=== PATIENT | female | born 1970 | race Caucasian/White ===

== ENCOUNTER 2018-09-19 09:10 | Observation (INO) | payer SELFPAY ==
[~2018-09-19] VITALS: Ht 162.6 cm; Wt 76.9 kg
[2018-09-19] MEDS ORDERED: ASPIRIN 81 MG CHEW (CHILDREN'S ASA) PO ONE (09:30)
--- NOTE | 2018-09-19 09:38 | ED Chest Pain ---
General Chief Complaint: Chest Pain Stated Complaint: NOT FEELING WELL,CHEST PAIN Source: patient Exam Limitations: no limitations History of Present Illness Date Seen by Provider: Sep 19, 2018 Time Seen by Provider: 09:21 Initial Comments The patient presents to ER by private conveyance with chief complaint of chest pain starting around 5:00 yesterday. It is worse with exertion. In her right chest she has shortness of breath with only occasional cough. She still smokes about a pack cigarettes per day. She says the pain is worse with deep inspiration or direct palpation but not movement. She does not have a history of coronary artery disease or history of chest pain before. She had nausea with some vomiting overnight. She's had no sweats or radiation of the pain to her neck shoulder. She does not have a history of diabetes, hypertension, hyperlipidemia. Her plan was to drive home to [facility] however the pain became too great was about 8 out of 10 on arrival and a 5 out of 10 at rest presently. She has not taken anything for the pain. She denies a history of lung disease, surgery, immobilization or hospitalization, cancer. She did have a several hour drive from [place] few days ago. She has no swelling or pain in her bilateral calves. No history of early-onset coronary disease in the family or DVT/pulmonary embolisms. Last oral intake was last night at dinnertime. Allergies and Home Medications Allergies Coded Allergies: No Known Drug Allergies (Unverified , 09/19/18) Home Medications Trazodone HCl 150 Mg Tablet, 150 MG PO HS, (Reported) Patient Home Medication List Home Medication List Reviewed: Yes Review of Systems Review of Systems Constitutional: No chills, No diaphoresis EENTM: No Blurred Vision, No Double Vision Respiratory: Denies Cough; Shortness of Air Cardiovascular: See HPI, Chest Pain; Denies Edema, Denies Irregular Heart Rate Gastrointestinal: Denies Abdomen Distended, Denies Abdominal Pain, Denies Constipated, Denies Diarrhea; Nausea, Vomiting Musculoskeletal: No back pain, No joint pain Skin: No pruritus, No rash Psychiatric/Neurological: Denies Headache, Denies Numbness Past Vfpynoz-Qxvhjl-Leoeoh Hx Patient Social History Alcohol Use: Denies Use Recreational Drug Use: No Smoking Status: Never a Smoker Recent Foreign Travel: No Contact w/Someone Who Travel: No Physical Exam Vital Signs Vital Signs - First Documented 09/19/18 09:12 Temp 98.0 Pulse 125 Resp 16 B/P (MAP) 155/113 (127) Pulse Ox 95 O2 Delivery Room Air Capillary Refill : Height, Weight, BMI Height: '" Weight: lbs. oz. kg; BMI Method: General Appearance: WD/WN, Anxious HEENT: Pharynx Normal, Moist Mucous Membranes Neck: Full Range of Motion, Normal Inspection, Non Tender, Supple Respiratory: No Chest Non Tender; Lungs Clear, Normal Breath Sounds, No Accessory Muscle Use, No Respiratory Distress, Other (right upper chest wall re- creates the same chest pain to direct palpation.) Cardiovascular: Regular Rate, Rhythm, No Edema, Normal Peripheral Pulses Gastrointestinal: Normal Bowel Sounds, Non Tender, Soft Neurologic/Psychiatric: Alert, Oriented x3 Skin: Normal Color, Warm/Dry Focused Exam Lactate Level 09/19/18 09:50: Lactic Acid Level 2.68*H 09/19/18 11:55: Lactic Acid Level 0.83 Lactic Acid Level Laboratory Tests Test 09/19/18 09:50 09/19/18 11:55 Lactic Acid Level 2.68 MMOL/L (0.50-2.00) *H 0.83 MMOL/L (0.50-2.00) Progress/Results/Core Measures Results/Orders Lab Results Laboratory Tests Test 09/19/18 09:50 09/19/18 11:55 Range/Units White Blood Count 14.4 H 4.3-11.0 10^3/uL Red Blood Count 5.10 4.35-5.85 10^6/uL Hemoglobin 15.8 11.5-16.0 G/DL Hematocrit 46 35-52 % Mean Corpuscular Volume 90 80-99 FL Mean Corpuscular Hemoglobin 31 25-34 PG Mean Corpuscular Hemoglobin Concent 35 32-36 G/DL Red Cell Distribution Width 14.3 10.0-14.5 % Platelet Count 310 130-400 10^3/uL Mean Platelet Volume 10.2 7.4-10.4 FL Neutrophils (%) (Auto) 78 H 42-75 % Lymphocytes (%) (Auto) 16 12-44 % Monocytes (%) (Auto) 5 0-12 % Eosinophils (%) (Auto) 0 0-10 % Basophils (%) (Auto) 0 0-10 % Neutrophils # (Auto) 11.2 H 1.8-7.8 X 10^3 Lymphocytes # (Auto) 2.3 1.0-4.0 X 10^3 Monocytes # (Auto) 0.8 0.0-1.0 X 10^3 Eosinophils # (Auto) 0.0 0.0-0.3 10^3/uL Basophils # (Auto) 0.1 0.0-0.1 10^3/uL Neutrophils % (Manual) 76 % Lymphocytes % (Manual) 23 % Monocytes % (Manual) 1 % Eosinophils % (Manual) 0 % Basophils % (Manual) 0 % Band Neutrophils 0 % Blood Morphology Comment NORMAL Prothrombin Time 13.7 12.2-14.7 SEC INR Comment 1.0 0.8-1.4 Activated Partial Thromboplast Time 26 24-35 SEC D-Dimer 0.63 H 0.00-0.49 UG/ML Sodium Level 136 135-145 MMOL/L Potassium Level 3.8 3.6-5.0 MMOL/L Chloride Level 101 98-107 MMOL/L Carbon Dioxide Level 20 L 21-32 MMOL/L Anion Gap 15 H 5-14 MMOL/L Blood Urea Nitrogen 15 7-18 MG/DL Creatinine 0.78 0.60-1.30 MG/DL Estimat Glomerular Filtration Rate > 60 BUN/Creatinine Ratio 19 Glucose Level 80 70-105 MG/DL Lactic Acid Level 2.68 *H 0.83 0.50-2.00 MMOL/L Calcium Level 9.2 8.5-10.1 MG/DL Corrected Calcium 9.0 8.5-10.1 MG/DL Magnesium Level 1.3 L 1.8-2.4 MG/DL Total Bilirubin 0.8 0.1-1.0 MG/DL Aspartate Amino Transf (AST/SGOT) 22 5-34 U/L Alanine Aminotransferase (ALT/SGPT) 17 0-55 U/L Alkaline Phosphatase 93 40-136 U/L Myoglobin 47.4 10.0-92.0 NG/ML Troponin I 0.039 H <0.028 NG/ML Total Protein 7.2 6.4-8.2 GM/DL Albumin 4.2 3.2-4.5 GM/DL My Orders Orders - JEFF BEACH Ekg Tracing (09/19/18 09:15) Continuous Ekg Monitoring (09/19/18 09:19) Cbc With Automated Diff (09/19/18 09:29) Magnesium (09/19/18 09:29) Chest 1 View, Ap/Pa Only (09/19/18:29) Cardiac Profile 1 (09/19/18 09:29) Comprehensive Metabolic Panel (09/19/18:29) Myoglobin Serum (09/19/18 09:29) Protime With Inr (09/19/18:29) Partial Thromboplastin Time (09/19/18:29) O2 (09/19/18:29) Lipid Panel (09/20/18 06:00) Ed Iv/Invasive Line Start (09/19/18:29) Fibrin Degradation Products (09/19/18:) Nitroglycerin 0.4 Mg Btl 25's (Nitrostat (09/19/18 09:30) Aspirin Chewable Tablet (Baby Aspirin Ch (09/19/18 09:30) Blood Culture (09/19/18 09:40) Lactic Acid Analyzer (09/19/18 09:40) Manual Differential (09/19/18 09:50) Morphine Injection (Morphine Injection (09/19/18 11:04) Ed Iv/Invasive Line Start (09/19/18 11:04) Ns Iv 500 Ml (Sodium Chloride 0.9%) (09/19/18 11:04) Ns Iv 1000 Ml (Sodium Chloride 0.9%) (09/19/18 11:04) Ct Angio Chest W (09/19/18 11:04) Iohexol Injection (Omnipaque 350 Mg/Ml 1 (09/19/18 11:15) Received Contrast (Hold Metformin- Contr (09/19/18 11:15) Sodium Chloride Flush (Catheter Flush Sy (09/19/18 11:15) Ns (Ivpb) (Sodium Chloride 0.9% Ivpb Bag (09/19/18 11:15) Ondansetron Injection (Zofran Injectio (09/19/18 11:15) Ceftriaxone For Iv Use (Rocephin For I (09/19/18 12:15) Azithromycin Tablet (Zithromax Tablet) (09/19/18 12:15) Magnesium Oxide Tablet (Mag Ox Tablet) (09/19/18 12:30) Ketorolac Injection (Toradol Injection) (09/19/18 12:30) General/Regular (09/19/18 Lunch) Medications Given in ED Current Medications Medications Dose Ordered Sig/Bethany Route Start Time Stop Time Status Last Admin Dose Admin Aspirin 324 mg ONCE ONCE PO 09/19/18 09:30 09/19/18 09:32 DC 09/19/18 09:50 324 MG Azithromycin 500 mg ONCE ONCE PO 09/19/18 12:15 09/19/18 12:16 DC 09/19/18 12:35 500 MG Ceftriaxone Sodium 1000 mg/ Sterile Water 10 ml @ 200 mls/hr ONCE ONCE IV 09/19/18 12:15 09/19/18 12:17 DC 09/19/18 12:34 200 MLS/HR Iohexol 100 ml ONCE ONCE IV 09/19/18 11:15 09/19/18 11:16 DC 09/19/18 11:29 100 ML Ketorolac Tromethamine 30 mg ONCE ONCE IVP 09/19/18 12:30 09/19/18 12:31 DC 09/19/18 12:34 30 MG Magnesium Oxide 400 mg ONCE ONCE PO 09/19/18 12:30 09/19/18 12:31 DC 09/19/18 12:35 400 MG Nitroglycerin 0.4 mg UD PRN SL 09/19/18 09:30 09/19/18 14:05 DC 09/19/18 10:13 0.4 MG Ondansetron HCl 8 mg ONCE ONCE IVP 09/19/18 11:15 09/19/18 11:16 DC 09/19/18 11:20 8 MG Sodium Chloride 10 ml NEEDED PRN IV 09/19/18 11:15 09/19/18 17:12 DC 09/19/18 11:29 10 ML Sodium Chloride 100 ml ONCE ONCE IV 09/19/18 11:15 09/19/18 11:16 DC 09/19/18 11:29 80 ML Vital Signs/I&O 09/19/18 09:12 Temp 98.0 Pulse 125 Resp 16 B/P (MAP) 155/113 (127) Pulse Ox 95 O2 Delivery Room Air Progress Progress Note #1: Time: 09:36 Progress Note Pleurisy, pneumonia, coronary artery disease, pulmonary embolism, costochondritis, etc. Plan to give her aspirin and nitroglycerin and obtain labs to include a d-dimer. Kiko's score 1.5 points. Low risk group: 1.3% chance of PE in an ED population. She has a left bundle branch block and no previous history concerning her. She denies knowledge of left bundle branch block her history of heart attack. We'll have to treat this like it is normal and see if she has an elevated troponin. This pain is been going on for 16 hours and would expect troponin to be positive if this was cardiac related. Her tachycardia has prompted us to get cultures and lactate as well. Progress Note #2: Time: 11:11 Progress Note Nitroglycerin did not think her pain there is a mild bump in her troponin and her d-dimer and lactate are both elevated. Pleurisy from a pneumonia not seen on chest x-ray versus possible pulmonary embolism. We'll get her a liter of fluids, Zofran, morphine and a CT angiogram of the chest. Progress Note #3: Time: 12:27 Progress Note Discussed the case with Dr. Rodriguez and from a cardiac standpoint he feels it would be reasonable to do a rule out here in the ER and have her set up for next week outpatient follow-up. Unfortunately the patient has remained tachycardic still around 115 bpm despite a 20 mL/kg fluid bolus. Blood pressures fine. Her troponin was present though not high and her lactate was elevated however that has cleared a site where the IV fluids. Suspected pericarditis/myocarditis is possible. We discussed with the patient and since [place] who would feel more comfortable doing an observation stay. Initial ECG Impression Date: Sep 19, 2018 Initial ECG Impression Time: 09:18 Initial ECG Rate: 133 Initial ECG Rhythm: S.Tach Initial ECG Intervals: QT (494) Initial ECG Impression: Nonspecific Changes Initial ECG Comparisson: No Previous ECG Available Comment Sinus tachycardia with a left bundle branch block. Diagnostic Imaging Diagonstic Imaging: Xray Plain Films/CT/US/NM/MRI: chest (1v) Comments [facility] [place], [place] NAME: SCOTTIE CAMILO [facility] REC#: [id number] PT STATUS: REG ER : 1970 PHYSICIAN: JEFF BEACH MD ADMIT DATE: 09/19/18/ER Draft Date of Exam:09/19/18 CHEST 1 VIEW, AP/PA ONLY INDICATION: Right-sided chest pain. FINDINGS: Lungs are clear. The heart vessels normal. There is no effusion or pneumothorax. IMPRESSION: Negative. Dictated on workstation # [id number] Dict: 09/19/18 1009 Trans: 09/19/18 1011 KB [id number] Interpreted by: SINDHU GOYAL Electronically signed by: Reviewed: Reviewed by Me Diagonstic Imaging: CT (angiogram) Plain Films/CT/US/NM/MRI: chest Reviewed: Reviewed by Me Departure Communication (Admissions) Time/Spoke to Admitting Phy: 12:29 Dr. Castelan agrees to observe the patient overnight fingerlike Toradol 30 mg now plus every 8 hours as needed. Trend labs. Impression Primary Impression: Chest pain Qualified Codes: R07.1 - Chest pain on breathing Additional Impressions: Pleurisy Myocarditis Qualified Codes: I40.9 - Acute myocarditis, unspecified SIRS-noninf w/o ac or ds Disposition: 09 ADMITTED INPATIENT Condition: Stable Admissions Decision to Admit Reason: Admit from ER (General) Decision to Admit/Date: Sep 19, 2018 Time/Decision to Admit Time: 12:00 Departure-Patient Inst. Referrals: NO,LOCAL PHYSICIAN (PCP/Family) Primary Care Physician JEFF BEACH Sep 19, 2018 09:38
[2018-09-19] MEDS: NITROGLYCERIN 0.4 MG SL TABS BTL 25'S SL PRN ×2 (09:50→10:13)
[2018-09-19 10:02] LABS: BASOPHILS # (AUTO) 0.1 10^3/uL (0.0-0.1); BASOPHILS % (AUTO) 0 % (0-10); EOSINOPHILS % (AUTO) 0 % (0-10); HEMATOCRIT 46 % (35-52); HEMOGLOBIN 15.8 G/DL (11.5-16.0); LYMPHOCYTES # (AUTO) 2.3 X 10^3 (1.0-4.0); LYMPHOCYTES % (AUTO) 16 % (12-44); MEAN CORPUSCULAR HEMOGLOBIN 31 PG (25-34); MEAN CORPUSCULAR HGB CONC 35 G/DL (32-36); MEAN CORPUSCULAR VOLUME 90 FL (80-99); MEAN PLATELET VOLUME 10.2 FL (7.4-10.4); MONOCYTES # (AUTO) 0.8 X 10^3 (0.0-1.0); MONOCYTES % (AUTO) 5 % (0-12); NEUTROPHILS # (AUTO) 11.2 X 10^3 (1.8-7.8); NEUTROPHILS % (AUTO) 78 % (42-75); PLATELET COUNT 310 10^3/uL (130-400); RED CELL DISTRIBUTION WIDTH 14.3 % (10.0-14.5); WHITE BLOOD COUNT 14.4 10^3/uL (4.3-11.0)
[2018-09-19 10:12] LABS: PROTHROMBIN TIME PATIENT 13.7 SEC (12.2-14.7)
--- NOTE | 2018-09-19 10:12 | Diagnostic Imaging Report ---
INDICATION: Right-sided chest pain. FINDINGS: Lungs are clear. The heart vessels normal. There is no effusion or pneumothorax. IMPRESSION: Negative. Dictated by: Dictated on workstation # [id number]
--- NOTE | 2018-09-19 10:16 | NUR ---
LAB IN ROOM DRAWING CULTURES AT THIS TIME.
--- NOTE | 2018-09-19 10:20 | NUR ---
NO CHANGE IN PAIN WITH X2 NITRO. 3RD NITRO NOT GIVEN ET DR NOTIFIED.
[2018-09-19 10:24] LABS: ALANINE AMINOTRANSFERASE 17 U/L (0-55); ALBUMIN 4.2 GM/DL (3.2-4.5); ALKALINE PHOSPHATASE 93 U/L (40-136); BILIRUBIN,TOTAL 0.8 MG/DL (0.1-1.0); BUN/CREATININE RATIO 19; CALCIUM 9.2 MG/DL (8.5-10.1); CARBON DIOXIDE 20 MMOL/L (21-32); CHLORIDE 101 MMOL/L (98-107); CREATININE SERUM 0.78 MG/DL (0.60-1.30); GFR ESTIMATED > 60; GLUCOSE 80 MG/DL (70-105); MAGNESIUM 1.3 MG/DL (1.8-2.4); POTASSIUM 3.8 MMOL/L (3.6-5.0); SODIUM 136 MMOL/L (135-145); TOTAL PROTEIN 7.2 GM/DL (6.4-8.2)
[2018-09-19 10:50] LABS: BAND NEUTROPHILS 0 %; BASOPHILS % (MANUAL) 0 %; EOSINOPHILS % (MANUAL) 0 %; LYMPHOCYTES % (MANUAL) 23 %; MONOCYTES % (MANUAL) 1 %; NEUTROPHILS % (MANUAL) 76 %; RBC MORPH NORMAL
[2018-09-19] MEDS ORDERED: morphine INJ 10 MG/ML 1ML (SYR OR VIAL) IVP STA (11:04)
[2018-09-19] MEDS ORDERED: NS IV 1000 ML 1,000 ML IV SCH (11:04)
[2018-09-19] MEDS ORDERED: NS IV 500 ML 500 ML IV ONE (11:04)
--- NOTE | 2018-09-19 11:06 | NUR ---
IN TO TALK TO PT AT THIS TIME.
[2018-09-19] MEDS ORDERED: CATHETER FLUSH 10 ML SYR IV PRN ×2 (11:15→14:00)
[2018-09-19] MEDS ORDERED: HOLD METFORMIN - RECEIVED CONTRAST 20 ML VIAL IV SCH (11:15)
[2018-09-19] MEDS ORDERED: IOHEXOL 350 MG/ML 100 ML (OMNIPAQUE 350) VIAL IV ONE (11:15)
[2018-09-19] MEDS ORDERED: ONDANSETRON 4 MG/2 ML (SDV) Z0FRAN IVP ONE (11:15)
[2018-09-19] MEDS ORDERED: NS 100 ML (IVPB) BAG IV ONE (11:15)
--- NOTE | 2018-09-19 11:59 | Diagnostic Imaging Report ---
PROCEDURE: CT angiography of the chest with contrast. TECHNIQUE: Multiple contiguous axial images were obtained through the chest after uneventful bolus administration of intravenous contrast. 2D reconstructed CTA MIP acquisitions were also performed. Auto Exposure Controls were utilized during the CT exam to meet ALARA standards for radiation dose reduction. INDICATION: Right-sided chest pain with nausea and vomiting that started yesterday. Comparison: Radiograph from the same day Findings: The pulmonary arteries are diagnostic to the segmental level. No pulmonary embolus is seen. The heart is upper normal in size. The aorta appears normal. No mediastinal adenopathy is seen. There is no axillary adenopathy. No central endobronchial lesions are seen. There is motion artifact in the lungs. There is mild interstitial thickening and groundglass opacity at the lung bases. No pleural effusion or pneumothorax is seen. Imaged portions of the upper abdomen demonstrate no acute abnormality. Small renal cysts are noted. No acute osseous abnormalities seen. IMPRESSION: 1. No pulmonary embolus. 2. Mild interstitial prominence and groundglass opacities in the lung bases, may be due to mild edema. These findings may be accentuated by the motion artifact. Dictated by: Dictated on workstation # [id number]
[2018-09-19] MEDS ORDERED: cefTRIAXone FOR IV USE 1,000 MG in WATER (STERILE) FOR INJECTION 10 ML IV ONE (12:15)
[2018-09-19] MEDS ORDERED: AZITHROMYCIN 250 MG TAB (ZITHROMAX) PO ONE (12:15)
[2018-09-19] MEDS ORDERED: MAGNESIUM OXIDE (MAG-OX)400 MG TAB PO ONE (12:30)
[2018-09-19] MEDS ORDERED: KETOROLAC 30 MG/ML VIAL IVP ONE (12:30)
[2018-09-19 12:47] LABS: BILIRUBIN,URINE NEGATIVE (NEGATIVE); CLARITY,URINE CLEAR; COLOR,URINE YELLOW; GLUCOSE, URINE (UA) NEGATIVE (NEGATIVE); KETONES,URINE 2+ (NEGATIVE); LEUKOCYTE ESTERASE ,URINE NEGATIVE (NEGATIVE); NITRITE,URINE NEGATIVE (NEGATIVE); PH,URINE 5 (5-9); PROTEIN,URINE 1+ (NEGATIVE); UROBILINOGEN,URINE NORMAL (NORMAL)
[2018-09-19 13:00] LABS: AMPHETAMINE SCREEN, URINE NEGATIVE (NEGATIVE); BARBITURATE SCREEN URINE NEGATIVE (NEGATIVE); BENZODIAZEPINES SCREEN URINE NEGATIVE (NEGATIVE); CANNABINOID SCREEN, URINE NEGATIVE (NEGATIVE); COCAINE SCREEN URINE NEGATIVE (NEGATIVE); METHADONE STAT NEGATIVE (NEGATIVE); METHAMPHETAMINE SCREEN URINE S NEGATIVE (NEGATIVE); OPIATE SCREEN URINE POSITIVE (NEGATIVE); OXYCODONE STAT NEGATIVE (NEGATIVE); PROPOXYPHENE STAT NEGATIVE (NEGATIVE); TRICYCLIC ANTIDEPRESSANTS SCRE NEGATIVE (NEGATIVE)
[2018-09-19 13:07] LABS: BACTERIA,URINE TRACE /HPF; WBC,URINE RARE /HPF
[2018-09-19] MEDS ORDERED: HYDROcodone/APAP 5 MG/325 MG (LORTAB) TAB PO ONE (13:30)
[2018-09-19 13:42] VITALS: BP 164/92
[2018-09-19] MEDS ORDERED: ONDANSETRON 4 MG/2 ML (SDV) Z0FRAN IV PRN (14:00)
[2018-09-19] MEDS ORDERED: ANTACID SUSP 30 ML UDC (MYLANTA) PO PRN (14:00)
[2018-09-19] MEDS ORDERED: KETOROLAC 15 MG/ML VIAL IV PRN (14:00)
[2018-09-19] MEDS ORDERED: ACETAMINOPHEN 500 MG TAB (TYLENOL) PO PRN (14:00)
[2018-09-19] MEDS ORDERED: TRAZ150T72 PO (14:33)
--- NOTE | 2018-09-19 14:33 | NUR ---
SPOKE WITH THE PATIENT ABOUT HER MEDICATIONS, SHE STATES SHE TAKES TRAZODONE 150MG AT BEDTIME AND FILLS AT [facility], HOWEVER SHE IS NOT FROM THIS AREA AND STATES SHE USES [facility] IN [place]. I CALLED THE [facility] IN [place] THAT HAS FILLED FOR HER IN THE PAST AND THEY HAVE NOT FILLED ANYTHING SINCE 2018. THEY HAVE NOT FILLED TRAZODONE SINCE 2017. THEY SEARCHED THEIR CENTRAL PROFILES AND DID NOT FIND SHE USES ANOTHER LOCATION HOWEVER IT IS POSSIBLE SHE HAS TWO PROFILES IN THEIR SYSTEM. I PUT TRAZODONE ON THE MED REC LIKE SHE REPORTED HOWEVER WAS UNABLE TO VERIFY LAST FILL DATE OR DOSE. SHE STATES SHE DOES NOT TAKE ANYTHING OTC OR ANY OTHER PRESCRIPTION MEDICATION.
[2018-09-19 14:50] VITALS: BP 142/91
[2018-09-19 15:40] VITALS: BP 142/77
[2018-09-19] MEDS: morphine INJ 4 MG/ML 1 ML (VIAL/SYRINGE) IV PRN (15:57)
[2018-09-19 16:40] VITALS: BP 170/85
--- NOTE | 2018-09-19 17:11 | History & Physical-Hospitalist ---
History of Present Illness HPI/Chief Complaint Patient reports being in her usual state of health until 5 o'clock P.m. on the . She returned to her hotel room and developed the onset of right sided chest pain. She doesn't recall doing anything particular but noted it was pleuritic initially there was no shortness of breath but as the pain became more intense she did feel a little bit short of breath. She denied diaphoresis chills or fever. She had an uncomfortable evening because of her chest pain it became worse this morning again without any chills fever or change in her baseline cough most likely smoking-related. She had not had pain like this bef ore and reported stable nonpurulent Tod morning sputum production that she's had for quite a few years. She reports 1 pack per day smoking history for roughly 30 years. There is no family history for early coronary disease her father had bypass in his 60s was a heavy smoker quit and is living at the age of 78. Mother is 76 with no significant health problems and reportedly smokes just 1 cigarette at bedtime. The patient has no past history of coronary artery disease. Past medical history is pretty noncontributory although she likely meets criteria for chronic bronchitis smoking-related. She is on no medication. She tested positive for opiates but her urine was collected after she received morphine for her chest pain. She reports no illicit drug use. Past surgical history is significant for total abdominal hysterectomy and bilateral nephrectomy for reported fibroid tumor that was large the beginning of the year. She had no complications and has no past history of thromboembolic disease. Date Seen 09/19/18 Time Seen by a Provider: 16:00 Attending Physician Les Jalloh MD PCP No,Local Physician Referring Physician Date of Admission Sep 19, 2018 at 12:30 Home Medications & Allergies Home Medications Reviewed patient Home Medication Reconciliation performed by pharmacy medication reconciliations ecg technician and/or nursing. Patients Allergies have been reviewed. Allergies Allergies Coded Allergies No Known Drug Allergies (Unverified09/19/18) Past Ycwxdps-Estwnm-Rrrnuy Hx Past Med/Social Hx: Reviewed and Corrections made Patient Social History Alcohol Use: Denies Use Recreational Drug Use: No Smoking Status: Never a Smoker Recent Foreign Travel: No Contact w/other who traveled: No Recent Hopitalizations: No Recent Infectious Disease Expo: No Past Medical History Surgeries: Hysterectomy Cardiac: Hypertension : No Review of Systems Constitutional: no symptoms reported, see HPI Respiratory: cough (Chronic worse when she goes without cigarettes), dyspnea on exertion (Just this morning when she was coming into the hospital at the time of severe chest pain); No hemoptysis, No orthopnea; phlegm; No short of breath, No stridor, No wheezing, No other Cardiovascular: No no symptoms reported; see HPI, chest pain; No edema, No Hx of Intervention, No palpitations, No syncope, No vascular heart diseas, No other Gastrointestinal: No abdominal pain, No constipation, No diarrhea, No dysphagia, No hematemesis, No heartburn, No jaundice, No loss of appetite, No melena; nausea; No vomiting, No other Physical Exam Physical Exam Vital Signs Vital Signs - First Documented 09/19/18 09/19/18 09:12 13:42 Temp 98.0 Pulse 125 Resp 16 B/P (MAP) 155/113 (127) Pulse Ox 95 O2 Delivery Room Air O2 Flow Rate 0.00 Capillary Refill : Less Than 3 Seconds Height, Weight, BMI Height: 5'4.00" Weight: 169lbs. 7.0oz. [id number]; 29.1 BMI Method:Estimated General Appearance: WD/WN, Mild Distress HEENT: Pharynx Normal Neck: Full Range of Motion, Normal Inspection, Non Tender, Supple Respiratory: Chest Non Tender, Lungs Clear, Normal Breath Sounds, No Accessory Muscle Use, No Respiratory Distress, Other (She has chest wall pain to palpation under the right breast there is no evidence for erythema warmth or swelling over the skin or soft tissue's no axillary adenopathy is noted.) Gastrointestinal: Normal Bowel Sounds, No Organomegaly, No Pulsatile Mass, Non Tender, Soft Extremity: Normal Capillary Refill, Normal Inspection, Normal Range of Motion, Non Tender, No Calf Tenderness, No Pedal Edema Results Results/Procedures Labs Laboratory Tests 09/19/18 09:50 Patient resulted labs reviewed. Assessment/Plan Admission Diagnosis A/P 1. Right-sided chest wall pain the patient is being admitted because of elevated white count and weakly positive troponin although her symptoms are quite atypical for coronary artery disease. Pericarditis to be more likely that symptoms are somewhat atypical for pericarditis as well. She also has left bundle branch block on her EKG. Leukocytosis is present but I suspect is more likely related to acute pain and underlying tobaccoism no evidence for infection. CTA revealed no evidence for pneumonia or pulmonary embolism no soft tissue abnormalities are noted either. 2. Patient meets criteria for chronic bronchitis discussed there will are some groundglass findings the bases of her lungs likely scar tissue from her smoking and that she is headed towards COPD like her father she is in the precontemplation phase of tobacco cessation was strongly advised to see her doctor and her father had utilize Chantix which helped and discussed that this would be an excellent option for her as well under medical supervision. Admission Status: Observation Reason for Inpatient Admission: See assessment and plan Clinical Quality Measures AMI/AHF: ASA po Prior to arrival: No DVT/VTE Risk/Contraindication: Risk Factor Score Per Nursin RFS Level Per Nursing on Admit: 4+=Very High LES JALLOH MD Sep 19, 2018 17:11
[2018-09-19] MEDS: NICOTINE 14 MG (NICODERM) PATCH TD SCH (17:15)
[2018-09-19 19:34] VITALS: BP 146/73
[2018-09-19] MEDS ORDERED: traZODone 150 MG (DESYREL) TABLET PO SCH (21:00)
[2018-09-19 23:37] VITALS: BP 158/87
[2018-09-20] MEDS: morphine INJ 4 MG/ML 1 ML (VIAL/SYRINGE) IV PRN (01:44)
[2018-09-20 03:25] VITALS: BP 160/88
[2018-09-20 05:07] LABS: BASOPHILS % (AUTO) 0 % (0-10); EOSINOPHILS # (AUTO) 0.1 10^3/uL (0.0-0.3); EOSINOPHILS % (AUTO) 2 % (0-10); HEMATOCRIT 39 % (35-52); HEMOGLOBIN 13.2 G/DL (11.5-16.0); LYMPHOCYTES # (AUTO) 1.6 X 10^3 (1.0-4.0); LYMPHOCYTES % (AUTO) 26 % (12-44); MEAN CORPUSCULAR HEMOGLOBIN 31 PG (25-34); MEAN CORPUSCULAR HGB CONC 34 G/DL (32-36); MEAN CORPUSCULAR VOLUME 92 FL (80-99); MEAN PLATELET VOLUME 10.4 FL (7.4-10.4); MONOCYTES # (AUTO) 0.5 X 10^3 (0.0-1.0); MONOCYTES % (AUTO) 7 % (0-12); NEUTROPHILS # (AUTO) 4.1 X 10^3 (1.8-7.8); NEUTROPHILS % (AUTO) 65 % (42-75); PLATELET COUNT 192 10^3/uL (130-400); RED CELL DISTRIBUTION WIDTH 13.5 % (10.0-14.5); WHITE BLOOD COUNT 6.3 10^3/uL (4.3-11.0)
[2018-09-20 05:35] LABS: ALANINE AMINOTRANSFERASE 16 U/L (0-55); ALBUMIN 3.4 GM/DL (3.2-4.5); ALKALINE PHOSPHATASE 75 U/L (40-136); BILIRUBIN,TOTAL 0.7 MG/DL (0.1-1.0); BUN/CREATININE RATIO 17; CALCIUM 8.5 MG/DL (8.5-10.1); CARBON DIOXIDE 22 MMOL/L (21-32); CHLORIDE 103 MMOL/L (98-107); CREATININE SERUM 0.77 MG/DL (0.60-1.30); GFR ESTIMATED > 60; GLUCOSE 100 MG/DL (70-105); POTASSIUM 3.3 MMOL/L (3.6-5.0); SODIUM 135 MMOL/L (135-145); TOTAL PROTEIN 5.8 GM/DL (6.4-8.2)
[2018-09-20 05:36] LABS: CHOLESTEROL 125 MG/DL (< 200); HDL CHOLESTEROL 61 MG/DL (40-60); TRIGLYCERIDES 80 MG/DL (<150); VLDL CHOLESTEROL 16 MG/DL (5-40)
[2018-09-20 07:56] VITALS: BP 147/84
[2018-09-20] MEDS: NICOTINE 14 MG (NICODERM) PATCH TD SCH (08:06)
[2018-09-20] MEDS ORDERED: NICOTINE PATCH REMOVAL TP SCH (08:59)
[2018-09-20] MEDS ORDERED: NICOTINE 14 MG (NICODERM) PATCH TD SCH (09:00)
[2018-09-20] MEDS ORDERED: ASPIRIN E.C. 81 MG (ECOTRIN) TAB PO SCH (09:00)
--- NOTE | 2018-09-20 10:37 | Discharge Summary-Hospitalist ---
Diagnosis/Chief Complaint Date of Admission Sep 19, 2018 at 12:30 Date of Discharge Sep 20, 2018 at 09:55 Discharge Date: Sep 20, 2018 Admission Diagnosis A/P 1. Right-sided chest wall pain the patient is being admitted because of elevated white count and weakly positive troponin although her symptoms are quite atypical for coronary artery disease. Pericarditis to be more likely that symptoms are somewhat atypical for pericarditis as well. She also has left bundle branch block on her EKG. Leukocytosis is present but I suspect is more likely related to acute pain and underlying tobaccoism no evidence for infection. CTA revealed no evidence for pneumonia or pulmonary embolism no soft tissue abnormalities are noted either. 2. Patient meets criteria for chronic bronchitis discussed there will are some groundglass findings the bases of her lungs likely scar tissue from her smoking and that she is headed towards COPD like her father she is in the precontemplation phase of tobacco cessation was strongly advised to see her doctor and her father had utilize Chantix which helped and discussed that this would be an excellent option for her as well under medical supervision. Discharge Summary Discharge Physical Exam Allergies: Coded Allergies: No Known Drug Allergies (Unverified , 09/19/18) Vitals & I&Os Vital Signs Date Time Temp Pulse Resp B/P (MAP) Pulse Ox O2 Delivery O2 Flow Rate FiO2 09/20/18 09:49 09/20/18 08:05 Room Air 09/20/18 07:56 97.0 91 16 97 09/19/18 14:50 0.00 General Appearance: No Apparent Distress, WD/WN Respiratory: Lungs Clear, Normal Breath Sounds, No Accessory Muscle Use, No Respiratory Distress, Other (Pain on stretching right chest wall and pain to palpation under the right breast over the chest wall. No palpable upper maladies noted.) Cardiovascular: Regular Rate, Rhythm, No Edema, No Gallop, No JVD, No Murmur, Normal Peripheral Pulses Skin: Normal Color, Warm/Dry Neurologic/Psychiatric: Alert, Oriented x3 Hospital Course Patient was able to sleep with no shortness of breath and no difficulty with ambulation. She persisted in having a right chest wall discomfort aggravated by movement of the chest wall raising her arm or deep breaths suggesting muscle strain. She had stable minimally elevated troponin levels not compatible with an acute coronary syndrome nor were her symptoms suggestive in any way. One other patient with minimal risk has had the same panel this week and raising the possibility of lab error. Her lipid panel was ideal with a total cholesterol of 125 and an HDL of 60 and triglyceride level of 80 there is no family history for early coronary disease. She has done well with the nicotine patch and we discussed that her CT scan was some groundglass abnormality in the bases and normal sounding chest was most compatible with smoking-related damage. She does meet criteria for chronic bronchitis. It was advised that she follow-up with her local physician when she goes back to [place]. She is to continue ibuprofen on a when necessary basis and discussed the fact that chest pain but likely resolve over the next 1-2 weeks most likely due to muscle strain. Labs (last 24 hrs) Laboratory Tests 09/19/18 11:55: Lactic Acid Level 0.83 09/19/18 12:40: Urine Color YELLOW, Urine Clarity CLEAR, Urine pH 5, Urine Specific [place] 1.010L, Urine Protein 1+H, Urine Glucose (UA) NEGATIVE, Urine Ketones 2+H, Urine Nitrite NEGATIVE, Urine Bilirubin NEGATIVE, Urine Urobilinogen NORMAL, Urine Leukocyte Esterase NEGATIVE, Urine RBC (Auto) NEGATIVE, Urine RBC NONE, Urine WBC RARE, Urine Squamous Epithelial Cells 10-25H, Urine Crystals NONE, Urine Bacteria TRACE, Urine Casts NONE, Urine Mucus NEGATIVE, Urine Culture Indicated NO, Urine Opiates Screen POSITIVEH, Urine Oxycodone Screen NEGATIVE, Urine Methadone Screen NEGATIVE, Urine Propoxyphene Screen NEGATIVE, Urine Barbiturates Screen NEGATIVE, Ur Tricyclic Antidepressants Screen NEGATIVE, Urine Phencyclidine Screen NEGATIVE, Urine Amphetamines Screen NEGATIVE, Urine Methamphetamines Screen NEGATIVE, Urine Benzodiazepines Screen NEGATIVE, Urine Cocaine Screen NEGATIVE, Urine Cannabinoids Screen NEGATIVE 09/19/18 16:05: Troponin I 0.063H 09/19/18 22:03: Troponin I 0.047H 09/20/18 04:26: White Blood Count 6.3, Red Blood Count 4.30L, Hemoglobin 13.2, Hematocrit 39, Mean Corpuscular Volume 92, Mean Corpuscular Hemoglobin 31, Mean Corpuscular Hemoglobin Concent 34, Red Cell Distribution Width 13.5, Platelet Count 192, Mean Platelet Volume 10.4, Neutrophils (%) (Auto) 65, Lymphocytes (%) (Auto) 26, Monocytes (%) (Auto) 7, Eosinophils (%) (Auto) 2, Basophils (%) (Auto) 0, Neutrophils # (Auto) 4.1, Lymphocytes # (Auto) 1.6, Monocytes # (Auto) 0.5, Eosinophils # (Auto) 0.1, Basophils # (Auto) 0.0, Sodium Level 135, Potassium Level 3.3L, Chloride Level 103, Carbon Dioxide Level 22, Anion Gap 10, Blood Urea Nitrogen 13, Creatinine 0.77, Estimat Glomerular Filtration Rate > 60, BUN/Creatinine Ratio 17, Glucose Level 100, Calcium Level 8.5, Corrected Calcium 9.0, Total Bilirubin 0.7, Aspartate Amino Transf (AST/SGOT) 21, Alanine Aminotransferase (ALT/SGPT) 16, Alkaline Phosphatase 75, Troponin I 0.046H, Total Protein 5.8L, Albumin 3.4, Triglycerides Level 80, Cholesterol Level 125, LDL Cholesterol Direct 43, VLDL Cholesterol 16, HDL Cholesterol 61H Patient resulted labs reviewed. Pending Labs Laboratory Tests 09/20/18 04:26: White Blood Count 6.3, Red Blood Count 4.30, Hemoglobin 13.2, Hematocrit 39, Mean Corpuscular Volume 92, Mean Corpuscular Hemoglobin 31, Mean Corpuscular Hemoglobin Concent 34, Red Cell Distribution Width 13.5, Platelet Count 192, Mean Platelet Volume 10.4, Neutrophils (%) (Auto) 65, Lymphocytes (%) (Auto) 26, Monocytes (%) (Auto) 7, Eosinophils (%) (Auto) 2, Basophils (%) (Auto) 0, Neutrophils # (Auto) 4.1, Lymphocytes # (Auto) 1.6, Monocytes # (Auto) 0.5, Eosinophils # (Auto) 0.1, Basophils # (Auto) 0.0, Sodium Level 135, Potassium Level 3.3, Chloride Level 103, Carbon Dioxide Level 22, Anion Gap 10, Blood Urea Nitrogen 13, Creatinine 0.77, Estimat Glomerular Filtration Rate > 60, BUN/Creatinine Ratio 17, Glucose Level 100, Calcium Level 8.5, Corrected Calcium 9.0, Total Bilirubin 0.7, Aspartate Amino Transf (AST/SGOT) 21, Alanine Aminotransferase (ALT/SGPT) 16, Alkaline Phosphatase 75, Troponin I 0.046, Total Protein 5.8, Albumin 3.4, Triglycerides Level 80, Cholesterol Level 125, LDL Cholesterol Direct 43, VLDL Cholesterol 16, HDL Cholesterol 61 Discussion & Recommendations Discharge Planning: <30 minutes discharge planning Discharge Home Medications: Active Scripts Active Reported Trazodone HCl 150 Mg Tablet 150 Mg PO HS Instructions to patient/family Please see electronic discharge instructions given to patient. Clinical Quality Measures AMI/AHF: ASA po Prior to arrival: No DVT/VTE Risk/Contraindication: Risk Factor Score Per Nursin RFS Level Per Nursing on Admit: 4+=Very High LES JALLOH MD Sep 20, 2018 10:37
== END 2018-09-20 08:52 | disposition home or self-care (01) ==
LOC: ER 09:12 → UNDOADMOB 12:30 → 4TH 12:30 → UNDODISOB 09-20 09:55
PROVIDERS: ADMIT Internal Medicine; ATTEND Internal Medicine
DX: R07.89 Other chest pain (principal); I44.7 Left bundle-branch block, unspecified; J41.0 Simple chronic bronchitis; F17.210 Nicotine dependence, cigarettes, uncomplicated
CPT/HCPCS: 36415; 71045; 71275; 80053; 80061; 80306; 81000; 83605; 83735; 83874; 84484; 85007; 85025; 85027; 85379; 85610; 85730; 87040; 93005; 96361; 96374; 96375; G0378